=== PATIENT | female | born 1975 | race Caucasian/White ===

== ENCOUNTER 2018-09-02 20:19 | Inpatient (IN) | payer MEDICAID ==
[~2018-09-02] VITALS: Ht 165.1 cm; Wt 92.1 kg
[2018-09-02] MEDS ORDERED: HALOPERIDOL 5 MG TABLET PO PRN (22:15)
[2018-09-02] MEDS ORDERED: VENL-193 PO (22:18)
[2018-09-02] MEDS ORDERED: DOXE25 PO (22:18)
[2018-09-02] MEDS ORDERED: QUET100T PO (22:18)
[2018-09-02] MEDS ORDERED: GABA-531 PO (22:18)
[2018-09-03 00:19] VITALS: BP 105/80
[2018-09-03] MEDS ORDERED: PNEUMOCOCCAL VACCINE POLYVALENT 0.5 ML VIAL [PPSV23] IM ONE (01:00)
[2018-09-03] MEDS: LORazepam 2 MG TABLET PO PRN ×3 (01:40→17:22)
[2018-09-03] MEDS: ZOLPIDEM TARTRATE 10 MG TABLET PO PRN ×2 (01:40→20:50)
[2018-09-03] MEDS ORDERED: BISACODYL 5 MG EC TABLET PO PRN (07:45)
[2018-09-03 08:10] VITALS: BP 106/54
[2018-09-03 09:13] LABS: BASOPHILS % (AUTO) 0.4 % (0.0-2.0); EOSINOPHILS % (AUTO) 0.1 % (1.0-6.0); HEMATOCRIT 44.6 % (36-46); HEMOGLOBIN 14.5 g/dL (12.0-16.0); LYMPHOCYTES # (AUTO) 2.4 K/uL (1.0-4.8); LYMPHOCYTES % (AUTO) 30.8 % (22.0-44.0); MEAN CORPUSCULAR HEMOGLOBIN 27.8 pg (26.0-34.0); MEAN CORPUSCULAR HGB CONC 32.5 G/dL (31.0-37.0); MEAN CORPUSCULAR VOLUME 85 fL (80-100); MONOCYTES # (AUTO) 0.4 K/uL (0.1-1.0); MONOCYTES % (AUTO) 4.8 % (2.0-9.0); NEUTROPHILS # (AUTO) 5.1 K/uL (1.8-7.7); NEUTROPHILS % (AUTO) 63.9 % (40.0-70.0); PLATELET COUNT (AUTO) 247 K/uL (150-450); RED BLOOD CELL COUNT(AUTO) 5.22 MIL/uL (4.00-5.20); RED CELL DISTRIBUTION WIDTH 13.9 % (11.5-14.5)
[2018-09-03 09:44] LABS: ALANINE AMINOTRANSFERASE 35 U/L (12-78); ALBUMIN 3.7 g/dL (3.4-5.0); ALKALINE PHOSPHATASE 100 U/L (46-116); ANION GAP 15 mmol/L (8-16); ASPARTATE AMINOTRANSFERASE 29 U/L (15-37); BILIRUBIN,TOTAL 0.9 mg/dL (0.1-1.0); CARBON DIOXIDE 22 mmol/L (22-29); CHLORIDE 103 mmol/L (98-107); CHOL/HDL RATIO 8.8 (3.9-5.7); CHOLESTEROL 265 mg/dL (131-200); CREATININE 0.74 mg/dL (0.60-1.30); FREE T4 (FREE THYROXINE) 0.93 ng/dL (0.76-1.46); GLOMERULAR FILTR. RATE CALC > 60 mL/min (>60); GLUCOSE,RANDOM 81 mg/dL (70-110); HCG,QUANTITATIVE < 1 mIU/mL (0-6); HDL CHOLESTEROL 30 mg/dL (40-60); LDL CHOL (CALC.) 200 mg/dL (0-130); SODIUM SERUM 140 mmol/L (136-145); THYROID STIMULATING HORMONE 3.29 uIU/mL (0.36-3.74); TOTAL PROTEIN, SERUM 7.1 g/dL (6.4-8.2); TRIGLYCERIDES 175 mg/dL (15-150); UREA NITROGEN, BLOOD 9 mg/dL (7-18)
[2018-09-03 09:54] LABS: HEMOGLOBIN A1C 5.8 % (4.5-6.2)
[2018-09-03] MEDS: VENLAFAXINE HCL 75 MG ER CAPSULE PO SCH (12:43)
[2018-09-03] MEDS: BusPIRone HCL 5 MG TABLET PO SCH ×2 (12:43→17:21)
[2018-09-03 16:19] VITALS: BP 125/76
[2018-09-03] MEDS ORDERED: ACETAMINOPHEN 325 MG TABLET PO PRN (18:00)
[2018-09-03] MEDS ORDERED: IBUPROFEN 600 MG TABLET PO PRN (18:00)
[2018-09-03] MEDS: QUEtiapine FUMARATE 100 MG TABLET PO SCH (20:50)
[2018-09-04 02:17] VITALS: BP 112/76
[2018-09-04 08:08] VITALS: BP 99/54
[2018-09-04] MEDS: BusPIRone HCL 5 MG TABLET PO SCH ×3 (09:24→17:24)
[2018-09-04] MEDS: QUEtiapine FUMARATE 25 MG TABLET PO SCH (09:25)
[2018-09-04] MEDS: VENLAFAXINE HCL 75 MG ER CAPSULE PO SCH (09:25)
[2018-09-04] MEDS: LORazepam 2 MG TABLET PO PRN ×2 (09:25→20:28)
[2018-09-04 16:19] VITALS: BP 117/79
[2018-09-04] MEDS: ZOLPIDEM TARTRATE 10 MG TABLET PO PRN (20:28)
[2018-09-04] MEDS: QUEtiapine FUMARATE 100 MG TABLET PO SCH (20:28)
[2018-09-05 07:08] VITALS: BP 115/77
[2018-09-05 08:15] VITALS: BP 100/62
[2018-09-05] MEDS: QUEtiapine FUMARATE 25 MG TABLET PO SCH (10:11)
[2018-09-05] MEDS: BusPIRone HCL 5 MG TABLET PO SCH ×3 (10:12→18:00)
[2018-09-05] MEDS: VENLAFAXINE HCL 75 MG ER CAPSULE PO SCH (10:12)
[2018-09-05] MEDS: LORazepam 2 MG TABLET PO PRN (12:24)
[2018-09-05 16:31] VITALS: BP 93/57
[2018-09-05] MEDS ORDERED: BusPIRone HCL 10 MG TABLET ONE (17:54)
[2018-09-05] MEDS: QUEtiapine FUMARATE 100 MG TABLET PO SCH (20:34)
[2018-09-05] MEDS: ZOLPIDEM TARTRATE 10 MG TABLET PO PRN (20:35)
[2018-09-06 06:06] VITALS: BP 105/70
[2018-09-06 08:42] VITALS: BP 103/62
[2018-09-06] MEDS: QUEtiapine FUMARATE 25 MG TABLET PO SCH (08:58)
[2018-09-06] MEDS: VENLAFAXINE HCL 75 MG ER CAPSULE PO SCH (08:58)
[2018-09-06] MEDS: BusPIRone HCL 5 MG TABLET PO SCH (08:58)
[2018-09-06] MEDS: LORazepam 2 MG TABLET PO PRN (11:40)
[2018-09-06] MEDS: BusPIRone HCL 10 MG TABLET PO SCH ×2 (12:15→17:00)
[2018-09-06] MEDS: NICOTINE 14 MG/24 HOUR PATCH TD SCH (12:15)
[2018-09-06 16:00] VITALS: BP 108/69
[2018-09-06] MEDS: QUEtiapine FUMARATE 200 MG TABLET PO SCH (20:38)
[2018-09-06] MEDS: ZOLPIDEM TARTRATE 10 MG TABLET PO PRN (20:38)
[2018-09-07 06:29] VITALS: BP 90/67
[2018-09-07 08:25] VITALS: BP 102/69
[2018-09-07] MEDS: VENLAFAXINE HCL 75 MG ER CAPSULE PO SCH (09:19)
[2018-09-07] MEDS: QUEtiapine FUMARATE 25 MG TABLET PO SCH (09:19)
[2018-09-07] MEDS: BusPIRone HCL 10 MG TABLET PO SCH ×3 (09:19→17:05)
[2018-09-07] MEDS: NICOTINE 14 MG/24 HOUR PATCH TD SCH (09:20)
[2018-09-07] MEDS: NYSTATIN 15 GM POWDER BOTTLE TP SCH ×2 (09:20→17:04)
[2018-09-07 16:30] VITALS: BP 110/78
[2018-09-07] MEDS: LORazepam 2 MG TABLET PO PRN (17:05)
[2018-09-07] MEDS: QUEtiapine FUMARATE 200 MG TABLET PO SCH (20:07)
[2018-09-07] MEDS: ZOLPIDEM TARTRATE 10 MG TABLET PO PRN (21:23)
[2018-09-08] MEDS: NYSTATIN 15 GM POWDER BOTTLE TP SCH ×2 (08:57→17:06)
[2018-09-08] MEDS: BusPIRone HCL 10 MG TABLET PO SCH ×3 (08:58→17:06)
[2018-09-08] MEDS: VENLAFAXINE HCL 75 MG ER CAPSULE PO SCH (08:58)
[2018-09-08] MEDS: NICOTINE 14 MG/24 HOUR PATCH TD SCH (08:58)
[2018-09-08] MEDS: QUEtiapine FUMARATE 25 MG TABLET PO SCH (08:58)
[2018-09-08 09:16] VITALS: BP 111/78
[2018-09-08] MEDS: LORazepam 2 MG TABLET PO PRN (13:21)
[2018-09-08 17:22] VITALS: BP 100/64
[2018-09-08] MEDS: QUEtiapine FUMARATE 200 MG TABLET PO SCH (20:30)
[2018-09-09 02:41] VITALS: BP 102/61
[2018-09-09] MEDS: ZOLPIDEM TARTRATE 10 MG TABLET PO PRN ×2 (02:46→20:38)
[2018-09-09] MEDS: LORazepam 2 MG TABLET PO PRN ×2 (02:46→16:43)
[2018-09-09 08:15] VITALS: BP 90/59
[2018-09-09] MEDS: BusPIRone HCL 10 MG TABLET PO SCH ×3 (08:30→16:43)
[2018-09-09] MEDS: QUEtiapine FUMARATE 25 MG TABLET PO SCH (08:30)
[2018-09-09] MEDS: VENLAFAXINE HCL 75 MG ER CAPSULE PO SCH (08:30)
[2018-09-09] MEDS: NICOTINE 14 MG/24 HOUR PATCH TD SCH (08:31)
[2018-09-09] MEDS: NYSTATIN 15 GM POWDER BOTTLE TP SCH ×2 (08:32→16:42)
[2018-09-09 16:20] VITALS: BP 109/73
[2018-09-09] MEDS: QUEtiapine FUMARATE 200 MG TABLET PO SCH (20:38)
[2018-09-10 06:20] VITALS: BP 108/67
[2018-09-10 08:32] VITALS: BP 100/60
[2018-09-10] MEDS: QUEtiapine FUMARATE 25 MG TABLET PO SCH (09:34)
[2018-09-10] MEDS: VENLAFAXINE HCL 75 MG ER CAPSULE PO SCH (09:34)
[2018-09-10] MEDS: BusPIRone HCL 10 MG TABLET PO SCH ×2 (09:34→12:15)
[2018-09-10] MEDS: NYSTATIN 15 GM POWDER BOTTLE TP SCH (09:34)
[2018-09-10] MEDS: NICOTINE 14 MG/24 HOUR PATCH TD SCH (09:51)
[2018-09-10] MEDS ORDERED: QUET200T PO (12:12)
[2018-09-10] MEDS ORDERED: BUSP10TA23 PO (12:12)
[2018-09-10] MEDS ORDERED: VENL-67 PO (12:12)
[2018-09-10] MEDS ORDERED: QUET25TA PO (12:12)
== END 2018-09-10 12:35 | disposition home or self-care (01) | DRG 751 ==
LOC: B3A 22:04
PROVIDERS: ADMIT Psychiatry & Neurology Psychiatry; ATTEND Psychiatry & Neurology Psychiatry
DX: F33.2 Major depressive disorder, recurrent severe without psychotic features (principal); R45.851 Suicidal ideations; F12.90 Cannabis use, unspecified, uncomplicated; K59.00 Constipation, unspecified; F60.3 Borderline personality disorder; Z91.5 Personal history of self-harm; Z90.49 Acquired absence of other specified parts of digestive tract
CPT/HCPCS: 83036; 84439; 84443